=== PATIENT | male | born 1950 | race Caucasian/White ===

== ENCOUNTER 2019-07-02 06:41 | Observation (INO) ==
--- NOTE | 2019-07-01 14:33 | Anesthesiology Consultation ---
Date of Service July 01, 2019 Assessment & Plan (1) Encounter for pre-operative examination: Patient not reached for nurse interview. Unable to obtain current height and weight from review of records. Weight from 05/29 PCP visit. Confirm medications/PMH with patient AM DOS. Chart Review Chart Review: Acceptable Risk for Surgery and Patient NOT seen in Pre Admission Testing Consults Requested none History Surgery Operation Date: 07/02/19 09:30 Proposed Procedures p Left Quadriceps Repair - Zay Andres Height/Weight Height: 6 ft Weight: 96 kg (BMI 29.5) Allergies Allergy/AdvReac Type Severity Reaction Status Date / Time cephalexin Allergy Intermediate HIVES Verified 07/02/19 07:12 Medications Home Medications Medication Instructions Recorded Confirmed Last Taken albuterol sulfate 90 mcg/actuation 90 mcg INH Q6H PRN 07/01/19 07/02/19 Unknown breath activated powder inhaler benazepril 20 mg tablet 20 mg PO QAM 07/01/19 07/02/19 07/01/19 09:00 cholecalciferol (vitamin D3) 2,000 unit PO QPM 07/01/19 07/02/19 06/30/19 16:00 [Vitamin D3] glucosamine HCl 500 mg tablet 500 mg PO BID 07/01/19 07/02/19 06/30/19 16:00 loratadine 10 mg tablet 10 mg PO QAM 07/01/19 07/02/19 07/01/19 09:00 multivitamin 1 cap PO QPM 07/01/19 07/02/19 06/30/19 16:00 omega-3 fatty acids 1,000 mg 1,000 mg PO QPM 07/01/19 07/02/19 07/01/19 16:00 capsule omeprazole 20 mg capsule,delayed 20 mg PO QAM 07/01/19 07/02/19 07/01/19 09:00 release simvastatin 10 mg PO HS 07/01/19 07/02/19 06/30/19 23:00 aspirin [Aspir-81] 80 mg PO DAILY 07/02/19 07/02/19 06/30/19 23:00 Active Medications Generic Name Dose Route Start Last Admin Trade Name Freq PRN Reason Stop Dose Admin Acetaminophen 1,000 mg 07/02/19 06:00 07/02/19 07:30 Tylenol PO 07/02/19 18:00 1,000 mg PREOP JENNIFER Administration Celecoxib 200 mg 07/02/19 06:00 07/02/19 07:30 Celebrex PO 07/02/19 18:00 200 mg PREOP JENNIFER Administration Gabapentin 300 mg 07/02/19 06:00 07/02/19 07:30 Neurontin PO 07/02/19 18:00 300 mg PREOP JENNIFER Administration Lactated Ringer's 1,000 mls @ 15 mls/hr 07/02/19 06:00 07/02/19 07:36 Lr IV 07/03/19 05:59 15 mls/hr .Q24H JENNIFER Administration Lactated Ringer's 1,000 mls @ 60 mls/hr 07/02/19 06:00 07/02/19 07:36 Lr IV 07/02/19 22:39 Not Given .[id number] JENNIFER Past Medical History Medical History GERD (gastroesophageal reflux disease) Hyperlipidemia Hypertension DMITRY (obstructive sleep apnea) uses CPAP nightly Osteoarthritis neck & shoulders PLMD (periodic limb movement disorder) Prostate cancer ~1999 Exercise / Class Metabolic Activity II 4-5 Yardwork/Stairs/Walk up hill Past Family History Family History Other No family history of adverse response to anesthesia Past Surgical History Surgical History H/O colonoscopy H/O esophagogastroduodenoscopy History of cataract surgery bilateral History of prostate surgery greenlight laser procedure History of tonsillectomy and adenoidectomy S/P LASIK surgery S/P UPPP (uvulopalatopharyngoplasty) Past Anesthesia History No Hx of Anesthesia Complications and No Family Hx of Anesthesia Complications History of PONV No Hx of PONV and No Hx of Motion Sickness Social History Smoking Status: Never smoker Do You Dip or Chew Tobacco: No Hx Alcohol Use: No Hx Substance Use: No Physical Exam Vital Signs Last Vital Signs Temp 37.2 C 07/02/19 07:18 Pulse 77 07/02/19 07:18 Resp 16 07/02/19 07:18 BP 148/82 H 07/02/19 07:18 Pulse Ox 95 07/02/19 07:18 Testing Laboratory Results 06/28/19 WBC: 8.26 H/H: 13.8/41.5 PLATELETS: 141 SODIUM: 141 POTASSIUM: 3.9 CHLORIDE: 110 CO2: 25 BUN: 18 CREATININE: 1.12 GLUCOSE: 128 PT: 10.3 PTT: 26.5 INR: 1.0 Electrocardiogram Date: 06/28/19 Findings: + NSR @ (77bpm) Nonspecific ST abnormality.
[~2019-07-02 06:41] MED LIST: ACETAMINOPHEN 500 MG TAB PO SCH; BUPIVACAINE LIPOSOME/PF 266 MG, BUPIVACAINE/EPINEPHRINE 50 ML, SODIUM CHLORIDE 0.9% 30 ... INFIL SCH; CLINDAMYCIN 600 MG/54 ML BAG IV SCH; CeleBREX 200 MG CAP PO SCH; GABAPENTIN 300 MG CAP PO SCH; LR 15ML/HR IV SCH; LR 60ML/HR IV SCH
[2019-07-02] MEDS ORDERED: ROPIVACAINE 0.5% 5 MG/ML 30 ML VIAL ONE (06:44)
--- NOTE | 2019-07-02 09:22 | History & Physical Bridge Note ---
Date of Service July 02, 2019 History & Physical Bridge Note I have examined the patient, reviewed the History & Physical and in the interval since the performance of the History & Physical I have noted the following changes of clinical significance: no changes noted
[2019-07-02] MEDS ORDERED: MIDAZOLAM HCL 1 MG/ML 2ML VIAL ONE (10:08)
[2019-07-02] MEDS ORDERED: fentaNYL citrate 100 MCG/2 ML VIAL ONE ×2 (10:09→12:00)
[2019-07-02] MEDS ORDERED: PROPOFOL IV EMULSION 10 MG/ML 20 ML VIAL IV ONE (10:15)
[2019-07-02] MEDS ORDERED: LIDOCAINE HCL 2% 2 ML VIAL/AMP(20MG/ML) INFIL ONE (10:15)
[2019-07-02] MEDS ORDERED: ONDANSETRON INJ 2 MG/ML 2 ML VIAL ONE (10:15)
[2019-07-02] MEDS ORDERED: EPINEPHrine INJ 1 MG/ML AMP ONE (10:25)
[2019-07-02] MEDS ORDERED: BUPIVACAINE 0.25% 30 ML VIAL ONE (10:26)
--- NOTE | 2019-07-02 12:53 | Post Operative Brief Note ---
PG Immediate Post Op with CF Date of Surgery July 02, 2019 Pre & Post Diagnosis Operation Date: 07/02/19 09:30 Pre-Op Diagnosis: Left Quadriceps Rupture Post-Op Diagnosis: Left Quadriceps Rupture I identified the patient and participated in the time-out.: Yes Procedure Operation Date: 07/02/19 09:30 Actual Procedures p Left Quadriceps Repair(Left) - Zay Andres Surgeon Arnoldo Cameron PA-C Senior Project Manager Nisha Estimated Blood Loss 20 Findings Consistent with Post-Op Diagnosis Specimens Specimen Description: none
--- NOTE | 2019-07-02 13:37 | Operative Report ---
PG Post Operative Report Pre & Post Diagnosis Operation Date: 07/02/19 09:30 Pre-Op Diagnosis: Left Quadriceps Rupture Post-Op Diagnosis: Left Quadriceps Rupture I identified the patient and participated in the time-out.: Yes Procedure Operation Date: 07/02/19 09:30 Actual Procedures p Left Quadriceps Repair(Left) - Zay Andres Surgeon Zay Andres Flame Cutting Supervisor Nisha Estimated Blood Loss 20 Findings See Below Complete rupture with fibrinous tissue at the distal tendon stump. There was disruption of the medial and lateral retinaculum. Tendon was repaired with running locking fiber tape sutures through 3 bone tunnels. The medial lateral patellar retinaculum was repaired with #5 Ethibond. Specimens None Anesthesia Type General Regional Complications none Disposition Accompanied Patient To Recovery: No Disposition: Recovery Room Indications 69-year-old male who sustained a fall at home resulting in a complete disruption of his quadricep mechanism. He was indicated for surgery and consent was obtained in clinic as outlined in the preoperative note. Description of Procedure On the day of surgery, the patient was greeted in the preoperative holding area and informed consent was reviewed and confirmed by the patient and the surgical site was identified with the patient signed by myself. He was then turned over to the anesthesia team and performed abductor canal block with excellent effect. He was taken to the operating placed supine in the OR table and sedation was induced. He was positioned for surgery supine. All bony prominences well- padded. A nonsterile tourniquet was placed high in the thigh. The right lower extremity was then prepped and draped in usual sterile fashion for knee surgery. Surgical timeout was called by the circulating nurse and verified by all present. Antibiotics have been infused. Equipment was available and functional. Half percent Marcaine with epinephrine was then infused along the incision line. We proceeded with a anterior approach to the knee. Sharp dissection was carried out with Bovie electrocautery used for hemostasis. He had a robust peritenon layer which was incised longitudinally. Medial lateral flaps were developed. This exposed the extensor mechanism well. He had a complete rupture of the quadricep tendon that had retracted approximately 2 cm. The tear propagated through the medial lateral patellar retinaculum. We performed a thorough lavage using normal saline and debrided the hematoma to expose the tissue. There was significant degenerated tendon which was debrided sharply using a knife and rongeur. The proximal side of the patella or superior pole was then debrided of soft tissue which had degenerative insertional tissue. Patella was debrided using a curette and rongeur. We exposed bleeding bone for adequate landing site for the repair. We then grasped the tendon stump with Allis clamps and use this to control it while I performed a running locking Krakw suture in 2 columns medially and laterally, performed in full-thickness bites. This resulted in 4 tails of fiber tape suture to cross the patella. They were clamped and covered with a blue towel. We then placed self retaining retractors to expose the full length of the patella. A bump was placed under the knee to hold approximately 30 degrees of flexion to expose the patella inferior and superior poles. A 2 mm drill pin was then passed through the central most aspect of the patella through and through from superior to inferior using a wire team cdl driver. This first drill pin was left in place and used as a guide to drill a second and third pin medial and lateral to the central one in parallel. Hueston suture passer was then placed on the tip of the drill bit and then backed into and up through the hole for each pain, in order to pass the 4 suture tells back down. One tail was passed through the medial and lateral tunnels while 2 tails passed through the middle tunnel. We then used the tails to reduce the tendon stump to the superior pole of the patella and firm knots were tied after passing the suture tail medially and laterally to avoid compression on the patella tendon tissue. This resulted in a firm grasp of the tissue and reduction of the stump to the superior pole of patella. There was no gapping up to 45 degrees of flexion. We then began repair the medial and lateral retinaculum with interrupted and running portions of #5 Ethibond suture. The peritenon was then repaired in a running locking fashion over this extensor mechanism repair with #1 undyed Vicryl suture. The distal peritenon cover the proximal tendon well and was then fixed to the patellar periosteum. I thoroughly irrigated the tissues as we closed. Deep #1 Vicryl suture was used to reapproximate the peritenon when possible and then reapproximate the prepatellar bursal layer and deep fascia. 0 undyed Vicryl suture was then used to approximate the deep dermal layer and interrupted fashion with wide spacing. 2-0 Vicryl suture was then used to approximate the dermal layer. Final skin closure was performed using bipin. Tourniquet was deflated exactly 60 minutes. Wound was dressed with sterile Arthrex jumpstart antimicrobial dressing, followed by sterile gauze, ABD, and web roll. A MIRIAM hose was used to contain the dressing and the limb was placed in a standard postoperative range of motion brace locked in full extension. Patient tolerated procedure well. He was awake in the operating room after sedation and transferred to the PACU in stable condition. Disposition: Patient will be weightbearing as tolerated with the knee locked in full extension. He will remain in full extension for 2 weeks. The brace can come off for gentle hygiene in the extended position. We will see him back in the clinic in 2 weeks time for first postoperative check. He will remain an in the observation setting to ensure adequate pain control. DVT prophylaxis will consist of his routine aspirin and early ambulation. We will continue mechanical prophylaxis as well while an inpatient. I attest to the content of the Intraoperative Record and any orders documented therein. Any exceptions are noted below.
--- NOTE | 2019-07-02 13:40 | XRay Report ---
XR knee LT 1 or 2V routine CLINICAL HISTORY: postop in pacu COMPARISON: 06/28/2019 DISCUSSION: The patient is now an external fixator. There is midline anterior inner midline incision. There is suggestion potential cortical defect of the proximal tibial metaphysis. Bony alignment overall is anatomic. Expected postoperative soft tissue change IMPRESSION: 1. Operative changes consistent with a midline incision and placement of an external fixator. 2. Potential short segment cortical fracture proximal tibia. ACT 112: Negative or not required by law. The above report was generated using voice recognition software. It may contain grammatical, syntax or spelling errors. Electronically signed by: Ernesto Ortega M.D. 07/02/2019 1:38 PM
[2019-07-02] MEDS ORDERED: ONDANSETRON INJ 2 MG/ML 2 ML VIAL IV PRN (14:03)
[2019-07-02] MEDS ORDERED: fentaNYL citrate 100 MCG/2 ML VIAL IV PRN (14:03)
[2019-07-02] MEDS ORDERED: ATROPINE SULFATE 0.1 MG/ML 10ML SYR IV PRN (14:03)
[2019-07-02] MEDS ORDERED: ePHEDrine sulfate 50 MG/ML AMP IV PRN (14:03)
[2019-07-02] MEDS ORDERED: HYDROmorphone INJ 1 MG/ML SYRINGE IV PRN (14:03)
[2019-07-02] MEDS ORDERED: HYDROmorphone INJ 0.5 MG/0.5 ML SYR IV PRN (14:26)
[2019-07-02] MEDS ORDERED: ALBUTEROL HFA 8 GM INHALER INH PRN (14:26)
[2019-07-02] MEDS ORDERED: ONDANSETRON 4 MG OD TAB PO PRN (14:26)
[2019-07-02] MEDS ORDERED: NALOXONE HCL 0.4 MG/1 ML VIAL/CARP IV PRN (14:26)
--- NOTE | 2019-07-02 14:42 | Anesthesiology Progress Note ---
Date of Service July 02, 2019 Anesthesia Post Procedure Vital Signs Vital Signs: Temp Pulse Pulse Resp BP Pulse Ox 07/02/19 14:41 74 16 124/73 97 07/02/19 13:40 70 18 115/65 98 07/02/19 13:25 36.3 C L 85 19 137/79 99 07/02/19 13:15 79 19 137/86 96 07/02/19 13:05 78 14 136/88 100 07/02/19 12:55 36.3 C L 79 16 143/81 H 99 07/02/19 07:18 37.2 C 77 16 148/82 H 95 Pain Intensity Left Knee: Pain Intensity: 2 Transfer of Care Handoff Completed per policy Notes Mental Status: alert / awake / arousable and participated in evaluation Patient Amnestic to Procedure: Yes Nausea / Vomiting: adequately controlled Pain: adequately controlled Airway Patency, RR, SpO2: stable & adequate BP & HR: stable & adequate Hydration State: stable & adequate Anesthetic Complications: no major complications apparent and Pt Satisfied with anesthetic care
[2019-07-02] MEDS: ACETAMINOPHEN 500 MG TAB PO SCH ×2 (15:17→22:58)
[2019-07-02] MEDS: OMEGA-3 (PURIFIED FISH OIL) 1 GM CAP PO SCH (20:04)
[2019-07-02] MEDS: MULTIVITAMIN TAB PO SCH (20:04)
[2019-07-02] MEDS: CHOLECALCIFEROL 1,000 UNITS TAB PO SCH (20:04)
[2019-07-02] MEDS: GLUCOSAMINE SULFATE 500 MG CAP PO SCH (20:04)
[2019-07-02] MEDS: SIMVASTATIN 10 MG TAB PO SCH (20:05)
[2019-07-02] MEDS: ASPIRIN 81 MG ECTAB PO SCH (20:05)
[2019-07-02] MEDS: OXYCODONE HCL IR 5 MG TAB (IMMEDIATE RELEASE) PO PRN (22:12)
[2019-07-03] MEDS: OXYCODONE HCL IR 5 MG TAB (IMMEDIATE RELEASE) PO PRN ×5 (02:57→19:22)
[2019-07-03] MEDS: ACETAMINOPHEN 500 MG TAB PO SCH ×3 (07:47→23:25)
[2019-07-03] MEDS: GLUCOSAMINE SULFATE 500 MG CAP PO SCH ×2 (09:23→20:32)
[2019-07-03] MEDS: LORATADINE 10 MG TAB PO SCH (09:24)
[2019-07-03] MEDS: ENALAPRIL MALEATE 10 MG TAB PO SCH (09:24)
[2019-07-03] MEDS: ASPIRIN 81 MG ECTAB PO SCH ×2 (09:24→20:32)
[2019-07-03] MEDS: PANTOprazole 40 MG TAB PO SCH (09:24)
--- NOTE | 2019-07-03 09:54 | Orthopedic Progress Note ---
Date of Service July 03, 2019 Assessment & Plan (1) Traumatic rupture of left quadriceps tendon: Making good progress on postoperative day 1. Continue pain management and PT/OT evaluations. Depending on the therapy evaluations, we will plan to discharge me the home or need to keep him until an inpatient rehabilitation facility can be found. I appreciate the PT/OT evaluation today. Sabiha Fish reports significant pain overnight which was managed with his oral oxycodone. He is being evaluated at the moment with occupational therapy. They are concerned about safety at home and want to work with him a bit more. Physical therapy has not evaluated him yet. Review of Systems Review of Systems: All systems reviewed & are unremarkable except as noted in HPI & below Physical Exam Physical Exam: He is awake and alert and seated at the bed. The knee immobilizer is in place, locked in full extension. The underlying dressing is clean and dry without evidence of spotting. The left lower extremity is neurovascular intact with positive dorsiflexion, plantarflexion and EHL activity. Results & Data Vital Signs (Past 12 Hours) Vital Signs Temp Pulse Resp BP Pulse Ox 07/03/19 07:07 36.7 C 86 16 126/74 94 07/03/19 02:44 36.8 C 86 16 127/75 95 07/02/19 22:56 37.0 C 78 16 137/81 99 PG Care Time/CCT Total # of Minutes Spent Total Time Spent with Patient: Total time spent is greater than 50% in coordination of care (as documented) at patient's floor/unit and/or counseling patient: (1) Traumatic rupture of left quadriceps tendon Encounter type: initial encounter Qualified Code(s): S76.112A - Strain of left quadriceps muscle, fascia and tendon, initial encounter
[2019-07-03] MEDS: OMEGA-3 (PURIFIED FISH OIL) 1 GM CAP PO SCH (20:32)
[2019-07-03] MEDS: MULTIVITAMIN TAB PO SCH (20:32)
[2019-07-03] MEDS: SIMVASTATIN 10 MG TAB PO SCH (20:33)
[2019-07-03] MEDS: CHOLECALCIFEROL 1,000 UNITS TAB PO SCH (20:33)
[2019-07-04] MEDS: OXYCODONE HCL IR 5 MG TAB (IMMEDIATE RELEASE) PO PRN ×4 (00:16→20:41)
[2019-07-04] MEDS: ACETAMINOPHEN 500 MG TAB PO SCH ×3 (07:34→23:53)
--- NOTE | 2019-07-04 07:34 | Orthopedic Progress Note ---
Date of Service July 04, 2019 Assessment & Plan (1) Traumatic rupture of left quadriceps tendon: Making good progress on postoperative day 2. Continue pain management and PT/OT evaluations. Depending on the therapy evaluations, we will plan to keep him until an inpatient rehabilitation facility can be found. I appreciate the PT/OT evaluation today. Sabiha Fish is two days s/p traumatic rupture of left quadriceps tendon. He is making good progress on post op day 2. He states his pain is tolerable and only complains of pain with flexion of his left knee. States PT was visiting with him yesterday and showed him how to get in and out of bed. He does not recall what they said in terms of his evaluation by them. He is hoping to go to [facility] for rehabilitation in the next 1-2 days. He is waiting for approval. He denies fever, chills, and sweats. Review of Systems Review of Systems: All systems reviewed & are unremarkable except as noted in HPI & below Physical Exam Physical Exam: He is awake and alert and seated at the bed. The knee immobilizer is in place, locked in full extension. The underlying dressing is clean and dry with evidence of spotting. The dressing was changed today. His incision site was clean, dry, and intact. Mild erythema and warm were noted with no evidence of active drainage. The left lower extremity is neurovascular intact with positive dorsiflexion, plantarflexion and EHL activity. Results & Data Vital Signs (Past 12 Hours) Vital Signs Temp Pulse Resp BP Pulse Ox 07/03/19 23:14 36.9 C 82 16 148/82 H 95 PG Care Time/CCT Total # of Minutes Spent Total Time Spent with Patient: Total time spent is greater than 50% in coordination of care (as documented) at patient's floor/unit and/or counseling patient: (1) Traumatic rupture of left quadriceps tendon Encounter type: initial encounter Qualified Code(s): S76.112A - Strain of left quadriceps muscle, fascia and tendon, initial encounter
--- NOTE | 2019-07-04 08:30 | Anesthesiology Progress Note ---
Date of Service July 04, 2019 Anesthesia Post Procedure Vital Signs Vital Signs: Temp Pulse Resp BP Pulse Ox 07/04/19 07:31 37 C 86 16 159/77 H 94 07/03/19 23:14 36.9 C 82 16 148/82 H 95 07/03/19 15:21 36.8 C 82 16 150/76 H 99 07/03/19 11:50 36.8 C 87 16 126/72 93 Pain Intensity Left Knee: Pain Intensity: 3 Notes Mental Status: alert / awake / arousable and participated in evaluation Nausea / Vomiting: adequately controlled Pain: adequately controlled Airway Patency, RR, SpO2: stable & adequate BP & HR: stable & adequate Hydration State: stable & adequate
[2019-07-04] MEDS: LORATADINE 10 MG TAB PO SCH (08:33)
[2019-07-04] MEDS: ASPIRIN 81 MG ECTAB PO SCH ×2 (08:33→20:43)
[2019-07-04] MEDS: PANTOprazole 40 MG TAB PO SCH (08:34)
[2019-07-04] MEDS: ENALAPRIL MALEATE 10 MG TAB PO SCH (08:34)
[2019-07-04] MEDS: GLUCOSAMINE SULFATE 500 MG CAP PO SCH ×2 (08:34→20:43)
[2019-07-04] MEDS: DOCUSATE SODIUM 100 MG CAP PO SCH (20:42)
[2019-07-04] MEDS: OMEGA-3 (PURIFIED FISH OIL) 1 GM CAP PO SCH (20:44)
[2019-07-04] MEDS: SIMVASTATIN 10 MG TAB PO SCH (20:45)
[2019-07-04] MEDS: MULTIVITAMIN TAB PO SCH (20:45)
[2019-07-04] MEDS: CHOLECALCIFEROL 1,000 UNITS TAB PO SCH (20:45)
--- NOTE | 2019-07-05 07:33 | Orthopedic Progress Note ---
Date of Service July 05, 2019 Assessment & Plan (1) Traumatic rupture of left quadriceps tendon: Making good progress on postoperative day 3. Continue pain management and PT/OT evaluations. Depending on the therapy evaluations, we will plan to keep him until an inpatient rehabilitation facility can be found/authorized. I appreciate the PT/OT evaluation today. Sabiha Fish is three days s/p traumatic rupture of left quadriceps tendon. He is making good progress on post op day 3. States he was able to sleep fully through the night last night with no issues. Yesterday he was walking around the halls and getting in and out of chairs with PT. He is happy with his progression and if waiting for departure. We are hopeful that [facility] will communicate at some point today for possible discharge. He states his pain is currently well controlled with oxycodone. He denies fever, chills, and sweats. He has no new complaints today. Review of Systems Review of Systems: All systems reviewed & are unremarkable except as noted in HPI & below Physical Exam Physical Exam: He is awake and alert and seated at the bed. The knee immobilizer is in place, locked in full extension. The underlying dressing is clean and dry without evidence of spotting. The dressing was changed today. His incision site was clean, dry, and intact. Mild erythema and warm were noted with no evidence of active drainage. The left lower extremity is neurovascular intact with positive dorsiflexion, plantarflexion and EHL activity. Results & Data Vital Signs (Past 12 Hours) Vital Signs Temp Pulse Resp BP Pulse Ox 07/04/19 23:04 37.1 C 82 16 138/81 97 PG Care Time/CCT Total # of Minutes Spent Total Time Spent with Patient: Total time spent is greater than 50% in coordination of care (as documented) at patient's floor/unit and/or counseling patient: (1) Traumatic rupture of left quadriceps tendon Encounter type: initial encounter Qualified Code(s): S76.112A - Strain of left quadriceps muscle, fascia and tendon, initial encounter
[2019-07-05] MEDS: ACETAMINOPHEN 500 MG TAB PO SCH (07:35)
[2019-07-05] MEDS: GLUCOSAMINE SULFATE 500 MG CAP PO SCH (08:25)
[2019-07-05] MEDS: PANTOprazole 40 MG TAB PO SCH (08:25)
[2019-07-05] MEDS: ASPIRIN 81 MG ECTAB PO SCH (08:25)
[2019-07-05] MEDS: LORATADINE 10 MG TAB PO SCH (08:25)
[2019-07-05] MEDS: DOCUSATE SODIUM 100 MG CAP PO SCH (08:25)
[2019-07-05] MEDS: ENALAPRIL MALEATE 10 MG TAB PO SCH (08:26)
[2019-07-05] MEDS: OXYCODONE HCL IR 5 MG TAB (IMMEDIATE RELEASE) PO PRN ×2 (08:36→14:44)
[2019-07-05] MEDS ORDERED: PSYLLIUM 58.6% POWDER PACKET PO SCH (09:00)
--- NOTE | 2019-07-11 16:23 | Discharge Summary ---
Date of Service July 11, 2019 Admission Exam (Per Admitting) Constitutional WD/WN, vitals as above well developed and well nourished; no acute distress Respiratory normal respiratory effort; no respiratory distress Cardiovascular Rate/Rhythm: regular rate Extremities: normal capillary refill; no edema Musculoskeletal LLE: obvious palpable quad defect. Unable to perform SLR. DNVI. Skin normal turgor Discharge Data Procedures Performed Operation Date: 07/02/19 09:30 Actual Procedures p Left Quadriceps Repair(Left) - [facility] Course (1) Traumatic rupture of left quadriceps tendon: Admitted postop for observation and initiation of PT/OT. Therapy evals demonstrated inability to safely be discharged to home. He remained inpatient for PT/OT and placement issues. On POD4, he was found to be under stable pain control and with no complication requiring further admission. He was transferred to inpatient rehabilitation as soon as a bed was available. Discharge Instructions MEDICATIONS: * Resume previous medications unless instructed otherwise by your surgeon. * Always take pain medication on a full stomach or with food to avoid upset stomach. * Do not drink alcohol or drive while taking narcotics. * Ibuprofen or Tylenol may be taken if narcotic not needed. SPECIAL CARE INSTRUCTIONS: __ None _x Keep extremity elevated and iced x 48 hours; apply ice 20-30 minutes 8-10 times/day. May remove at night. __x Crutches - WBAT with knee locked in extension until f/u. x__ Brace/Post-op shoe _x_ 24 hrs/day __ Remove at night x__ Dressing __ Maintain until seen in office, may shower with plastic over site _x_ Remove dressings in 24-48 hours and then may shower, replace dressing daily until without drainage for 24 hours __ Cover incisions with band-aids after showering __ Do not remove steri-strips Call physician if chills or temperature rises above 102 degrees or pain unrelieved by prescribed pain medications. Office [phone]
== END 2019-07-05 15:20 | disposition home health service (06) ==
LOC: 3E 06:41 → ASU 06:41